=== PATIENT | female | born 2005 | race Caucasian/White ===

== ENCOUNTER 2024-10-03 06:44 | Emergency (ER) | payer MEDICAID ==
[~2024-10-03] VITALS: Ht 157.5 cm; Wt 87.0 kg
[2024-10-03 06:57] VITALS: O2SAT 99
[2024-10-03] MEDS ORDERED: DICYCLOMINE 10 MG/5 ML ORAL SYR PO STA (07:29)
[2024-10-03] MEDS: DICYCLOMINE HCL 10MG CAPSULE PO SCH (07:38)
[2024-10-03] MEDS: ONDANSETRON 4MG ODT PO STA (07:38)
[2024-10-03] MEDS: VISCOUS LIDOCAINE 2% 15 ML UDC PO STA (07:38)
[2024-10-03] MEDS: MAGNESIUM/ALUMINUM HYDROXIDE/SIMETHICONE 30ML UDC PO STA (07:38)
[2024-10-03 08:28] LABS: BASOPHILS % 0.2 % (0.0-2.0); EOSINOPHILS % 1.3 % (0.0-5.0); HEMATOCRIT. 40.5 % (36.0-48.0); HEMOGLOBIN. 13.9 g/dL (12.0-16.0); LYMPHOCYTES % 13.1 % (20.0-50.0); MEAN CORPUSCULAR HGB CONC 34.4 g/dL (31.0-37.0); MEAN CORPUSCULAR VOLUME 87.3 fL (81.0-99.0); MEAN PLATELET VOLUME 9.2 fl (7.4-10.4); MONOCYTES % 6.6 % (2.0-8.0); NEUTROPHILS % 78.8 % (40.0-76.0); PLATELET 308 x1000/uL (130-400); RED BLOOD CELL COUNT 4.64 mill/uL (4.2-5.4); RED CELL DISTRIBUTION WIDTH 12.6 % (11.6-14.6); WHITE BLOOD COUNT 12.3 x1000/uL (4.5-11.0)
[2024-10-03 08:35] LABS: HCG SCREEN NEGATIVE
[2024-10-03 08:37] LABS: CARBON DIOXIDE 25 mEq/L (21-32); CHLORIDE 105 mEq/L (98-107); SODIUM 138 mEq/L (136-145)
[2024-10-03 08:38] LABS: CALCIUM 9.3 mg/dL (8.7-10.4)
[2024-10-03 08:42] LABS: CREATININE 0.8 mg/dL (0.6-1.0)
[2024-10-03 08:43] LABS: GLUCOSE 114 mg/dL (70-105); UREA NITROGEN BLOOD 10 mg/dL (9-23)
[2024-10-03 08:44] LABS: ALANINE AMINOTRANSFERASE 31 IU/L (10-49); ALBUMIN 4.4 g/dL (3.2-4.8); ASPARTATE AMINOTRANSFERASE 23 IU/L (<34)
[2024-10-03 08:45] LABS: BILIRUBIN DIRECT 0.2 mg/dL (<=3.0); BILIRUBIN TOTAL 0.5 mg/dL (0.1-1.0); PROTEIN TOTAL 7.4 g/dL (6.0-8.3)
[2024-10-03 09:05] LABS: CLARITY URINE CLOUDY (CLEAR); COLOR URINE YELLOW (YELLOW); GLUCOSE URINE NEGATIVE (NEGATIVE); KETONES URINE NEGATIVE (NEGATIVE); LEUKOCYTE ESTERASE URINE NEGATIVE (NEGATIVE); NITRITE URINE NEGATIVE (NEGATIVE); OCCULT BLOOD URINE NEGATIVE (NEGATIVE); PH URINE 7.5 (4.5-8.0); PROTEIN URINE NEGATIVE (NEGATIVE)
[2024-10-03 09:37] LABS: BACTERIA URINE FEW; RBC URINE 0-2 /hpf (0-2); SQUAMOUS EPITHELIAL CELL URINE 1+ /lpf (RARE/1+); WBC URINE 0-2 /hpf (0-2); YEAST URINE NONE SEEN
[2024-10-03] MEDS ORDERED: MAG-55 PO (10:03)
[2024-10-03] MEDS ORDERED: FAMO-135 PO (10:03)
[2024-10-03 10:08] VITALS: BP 112/76; PULSE 82; RESP 16; TEMP 37; O2SAT 99
== END 2024-10-03 10:10 | disposition home or self-care (01) ==
LOC: ER 06:44
DX: R10.13 Epigastric pain (principal)
CPT/HCPCS: 99284; 80076; 80048; 81003; 81025; 84703; 83690; 85025; 36415; 74018; Q0162